=== PATIENT | male | born 1940 | race Caucasian/White ===

== ENCOUNTER 2018-08-14 17:21 | Emergency (ER) | payer OTHER, BC ==
[2018-08-14 17:36] VITALS: BP 126/84; PULSE 83; BMI 24.7
[2018-08-14] MEDS ORDERED: DIPHTH,PERTUSS(ACELL),TET 0.5 ML DISP.SYRIN IM ONE ×2 (19:12→19:29)
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
== END 2018-08-14 19:54 | disposition home or self-care (01) ==
LOC: JERFT 17:21
PROC: 3E0234Z Introduction of Serum, Toxoid and Vaccine into Muscle, Percutaneous Approach (ICD-10-PCS; principal; 2018-08-14)
DX: S41.131A Puncture wound without foreign body of right upper arm, initial encounter (principal); X99.9XXA Assault by unspecified sharp object, initial encounter; Y93.89 Activity, other specified; Y92.89 Other specified places as the place of occurrence of the external cause; Y99.8 Other external cause status; Y07.9 Unspecified perpetrator of maltreatment and neglect
CPT/HCPCS: 90715; 99281-25